=== PATIENT | female | born 1960 | race African-American/Black ===

== ENCOUNTER → 2017-02-02 | Day surgery (SDC) | payer OTHER ==
[~2017-02-02] MED LIST: ACETAMINOPHEN 1000 MG/100 ML VIAL IV ONE; BUPIVACAINE/EPINEPHRINE 0.5% 50 ML VIAL ONE; BUPIVACAINE/EPINEPHRINE 0.5% PF 10 ML VIAL ONE; ISOSULFAN BLUE 50 MG/5 ML VIAL SQ ONE; LACTATED RINGER'S 1000 ML INJ 1,000 ML ONE; LIDOCAINE 1%/EPINEPHrine 1:100,000 SOLN 20 ML VIAL ONE; MIDAZOLAM HCL 2 MG/2 ML VIAL ONE; ONDANSETRON HCL 4 MG/2 ML VIAL IV PUSH ONE; PROPOFOL 200 MG/20 ML AMP IV ONE; Z.0.NO CURRENT MEDS; ceFAZolin INJ 1,000 MG VIAL ONE
--- NOTE | 2017-02-02 09:08 | TN ---
cc: REBEKAH GRAHAM M.D., JOSEPH D. M.D. DATE OF SURGERY: 02/02/2017 PREOPERATIVE DIAGNOSES Nipple discharge 6 o'clock position right breast. POSTOPERATIVE DIAGNOSIS Nipple discharge 6 o'clock position right breast, probable intraductal papilloma. PROCEDURE Excision of breast tissue under the nipple-areolar complex at the 6 o'clock position from approximately 5-7 o'clock. ANESTHESIA MAC. SURGEON Dr. Hargrove. INDICATION This is a pleasant 56-year-old female who has had nipple discharge. She had a work-up and she has continues to discharge at the 6 o'clock position. Plans were made for excision. DETAILS OF PROCEDURE The patient was taken to the operating room and placed in the supine position. After anesthesia her right breast and chest were prepped with Betadine. We previously marked the area at the 6 o'clock position where with gentle pressure at the nipple-areolar complex clear fluid can be seen coming from the nipple at the 6 o'clock position. We make a curvilinear incision at the previous scar in the 6 o'clock position of the breast and dissect down just underneath the skin and subcutaneous tissue to about 0.5 cm deep. Dilated ducts are encountered and they are cauterized. We then remove the specimen. The specimen is oriented with a short stitch placed superiorly and a long stitch placed laterally. This is passed off the field. We then irrigate. Hemostasis is assured with the electrocautery device. We then reapproximate the deep subcutaneous tissue and breast tissue with 3-0 Vicryl and the skin is re-approximated with 4-0 Vicryl in a running fashion. The patient tolerated the procedure well and had no immediate post-op complications. A sterile bandage was applied. MD CHERYL Curry/KANG /9:01 AM /9:07 AM
== END | disposition home or self-care (01) ==
LOC: ESDC 06:24
PROVIDERS: ATTEND Surgery
DX: N64.52 Nipple discharge (principal); N60.91 Unspecified benign mammary dysplasia of right breast
CPT/HCPCS: 00400; 19120; 88307; J0131; J0690; J2250; J2405; J3010; J7120; 88305; Q9968